=== PATIENT | male | born 1960 | race Caucasian/White ===

== ENCOUNTER 2019-05-10 11:07 | Day surgery (SDC) | payer MEDICARE, MEDICAID, SELFPAY ==
--- NOTE | 2019-04-13 01:56 | HP_ITS ---
Intake Vital Signs 04/13/19 Body Mass Index (BMI) 24.3 04/13/19 Height 5 ft 6 in 04/13/19 Weight: 194 lb 04/13/19 Body Mass Index (BMI) 31.3 04/13/19 Blood Pressure 193/97 H 04/13/19 Blood Pressure Location Rt brachial 04/13/19 Respiratory Rate 16 04/13/19 Pulse Rate 79 04/13/19 Pulse Source Monitor 04/13/19 Temperature 97.9 F 04/13/19 Pulse Ox 100 04/13/19 Oxygen Delivery Method room air Intake Visit Reasons: Multiple Skin Lesions, Ear/Eye Mainspring W[employer]iler Required: No Is patient in pain?: No Allergies benzyl alcohol Allergy (Verified 04/13/19 13:33) Rash Medications Amlodipine [Norvasc] 5 mg PO DAILY 01/04/14 [History Confirmed 04/13/19] Atenolol [Tenormin (Beta Nicole)] 50 mg PO DAILY 01/04/14 [History Confirmed 04/13/19] Carbamazepine [Tegretol] 100 mg PO DAILY 01/04/14 [History Confirmed 04/13/19] Carbamazepine [Tegretol] 200 mg PO BIDCM 01/04/14 [History Confirmed 04/13/19] Famotidine [Pepcid] 20 mg PO DAILY 01/04/14 [History Confirmed 04/13/19] Senna [Senokot] 1 tab PO BID 01/04/14 [History Confirmed 04/13/19] Simvastatin [Zocor] 20 mg PO DAILY 01/04/14 [History Confirmed 04/13/19] Venlafaxine HCl 75 mg PO DAILY 01/04/14 [History Confirmed 04/13/19] Venlafaxine HCl [Effexor Xr] 150 mg PO QHS 01/04/14 [History Confirmed 04/13/19] cholecalciferol (vitamin D3) 1,000 unit capsule 1,000 unit PO DAILY 04/13/19 [History Confirmed 04/13/19] loratadine 10 mg tablet 10 mg PO DAILY 04/13/19 [History Confirmed 04/13/19] tamsulosin 0.4 mg capsule 0.4 mg PO DAILY 04/13/19 [History Confirmed 04/13/19] [facility] Medical History (Updated 04/13/19 @ 13:52 by Philip Conroy MD) Controlled depression (Acute) GERD without esophagitis (Acute) Cerebral palsy (Acute) Profound intellectual disabilities (Acute) Periorbital cellulitis (Acute) Epilepsy (Acute) Benign prostatic hyperplasia without lower urinary tract symptoms (Acute) Allergic rhinitis, mild (Acute) 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 (Acute) Impulse control disorder (Acute) Hypertension (Chronic) Surgical History (Updated 04/13/19 @ 13:31 by Genesis Gr) History of ankle surgery (Acute) Family History (Updated 04/13/19 @ 13:32 by Genesis Gr) Brother Arthritis Heart disease Hypertension Sister Seizures Heart disease Hypertension Arthritis Mother Arthritis Heart disease Seizures Social History (Updated 04/13/19 @ 13:56 by Philip Conroy MD) Smoking Status: Never smoker second hand exposure: No alcohol intake: never substance use type: does not use caffeine: Yes what type of physical activity do you participate in: none frequency: does not exercise HPI HPI HPI: JOSHUA DONALDSON, is a 59 M who presents to the office today for HPI HPI Surgical H&P: Yes HPI: JOSHUA DONALDSON, is a 59 M who presents to the office today for surgical consultation regarding multiple skin lesions. The patient is referred by his primary care physician Dr. Hermilo Clarke in written compromise surgical consult recommendations will be returned to him The patient has irritated bilateral infraorbital skin tags on his lower eyelids. A very dominant one on the left and slightly less prominent one on the right. He has a very tender lesion on the left superior ear pinna measuring 8 mm in size. He has a partially pedunculated irritated lesion left upper back. Problems include seizure disorder and impulse control disorder. It is not felt that he can have these items treated conservatively in an office setting and he was referred for surgery to perform procedure of removal in an operating room setting. The patient has had operative intervention in the past most recently for fractured ankle and by report he does well. Although he is on seizure medication he has not had a seizure for an extended period of time ROS General General: No weight change, appetite, fatigue, colon cancer, breast cancer or weakness HEENT HEENT: No difficulty swallowing, eye injury, eye surgery, swollen glands or hoarseness Endo Endocrine: No thyroid disease, diabetes mellitus, thyroid cancer, Hair loss, heat intolerance or cold intolerance Skin Skin: No rash or changing moles Breast Breast: No left breast lump, right breast lump, nipple discharge, breast pain, abnormal mammogram, abnormal US or breast enlargement Cardio Cardiovascular: Yes high blood pressure; no murmur, pacemaker, heart disease, atrial fibrillation, heart attack, heart stent, palpitations, shortness of breat with exertion or chest pain Resp Respiratory: No shortness of breath, No sleep apnea, No cough, No COPD, No asthma, No emphysema, No wheezing Gastro Gastrointestinal: No abdominal pain, No nausea or vomiting, No diarrhea, No constipation, No blood in stool, No acid reflux, No hemorrhoids, No ulcers, No gallbladder problem, No black,tarry stools Juan Luis Hematologic: No blood thinners, No blood disorders, No bleeding, No anemia, No blood clots Neuro Neurologic: No system reviewed and no additional complaints, except as docu, No as per HPI, No abnormal walking, No abnormal hearing, No abnormal movements, No abnormal speech, No behavioral changes, No burning sensations, No confusion, No seizure-like activity, No unsteadiness, No dizziness, No localized weakness, No frequent falls, No headache(s), No lack of coordination, No loss of vision, No memory loss, No numbness, No other visual disturbances, No radiating pain, No restless legs, No sensory deficit, No fainting, No tingling, No tremor(s), No weakness, No other Exam Const Nutritional Appearance: overweight Orientation: awake [facility] Other: Left lower eyelid pedunculated elongated 4 mm skin tag right lower eyelid 2 mm skin tag Left apical ear pinna slightly exophytic flesh-colored 8 mm diameter lesion tender to palpation Chest Breast Palpation: No nipple discharge Other: Left upper back keratotic pedunculated 1 cm lesion Resp Effort & Inspection: normal respiratory effort Auscultation: clear to auscultation bilaterally Cardio Rate: regular rate Rhythm: regular rhythm Heart Sounds: no murmurs GI Other: Overweight Assessment & Plan Problems 1. Skin lesion L98.9 Plan The periorbital skin tags can be associated with basal cancer. I recommend amputation with pathology. The left apical ear pinna lesion could be chondrodermatitis nodularis helicis. Left upper back lesion appears to be a pedunculated fibroepithelial polyp. I plan cautery ablation of the periorbital lesions in the left upper back lesion. I plan suturing elliptical excision of the left ear pinna lesion with primary closure. He is provided with assistance from his care providers. We will schedule and proceed at their discretion. I believe that I can pursue this under monitored anesthesia care local anesthetic. CC: Dr. Hermilo Conroy M.D., F.A.C.S. Coding Level of Care Code 24467 Diagnoses Skin lesion L98.9 04/13/19 1356 <Electronically signed by Philip brito MD> Date _ Philip Conroy MD I have re-examined the patient. There are no clinical changes since date of exam.
[2019-04-13 13:40] VITALS: BMI 24.3
[2019-05-10] VITALS (7 sets, daily range): BP systolic 111–131; BP diastolic 75–95; PULSE 69–75; RESP 16–18; TEMP 36.2; O2SAT 99–100; BMI 35.5
--- NOTE | 2019-05-10 | LES_PTH ---
PATIENT: JOSHUA CRUZ LOC: [facility] – [place] U#:[id number] AGE/SX: 59/M ROOM: RE05/10/[address]: Dr. Philip Conroy MD : [id number] BED: DIS: 05/10/2019 SPEC #: [id number] RECD: 05/10/19 14:32 STATUS: CHIDI VANDANA #: [id number] ROSEMARY: 05/10/19 00:[address]: Philip Conroy DEPT: SURGICAL PATHOLOGY RECD BY: Marcelo Argueta ENTERED: 05/11/19 08:56 SP TYPE: Lesion OTHR DR: Dr. Hermilo Clarke MD Tissues: A - Skin of external ear, NOS B - Skin of head, NOS C - Skin of external ear, NOS D - Skin of back, NOS Procedures: Surgery Specimen Level IV HEADER OPERATION: Ablation/excision bilateral lower eyelid skin lesions PRE-OP DIAGNOSIS: Skin lesions, bilateral lower eyelids; bilateral ear helix; left upper back TISSUE SUBMITTED: A - Left ear lesion, B - Left and right periorbital skin lesions, C - right anterior ear helix, D - Back lesion, left MICROSCOPIC DIAGNOSIS A. Left ear lesion, biopsy: A piece of skin with focal acanthosis and hyperkeratosis. Negative for malignancy. B. Left and right periorbital skin lesions, biopsy: Fragments of squamous papilloma. C. Right anterior hallux lesion, biopsy: Consistent with verruca vulgaris. D. Back lesion, left, biopsy: Squamous papilloma. SJ:mauro 05/14/19 MICROSCOPIC DESCRIPTION Slides are reviewed. GROSS DESCRIPTION A - Received in fixative is one container labeled with the patient's name and designated left ear lesion. The specimen consists of a piece of gunter-white skin measuring 1.5 x 0.5 x 0.1 cm. The specimen is inked and submitted entirely in one cassette. It will be sectioned at the time of embedding. B - Received in fixative is one container labeled with the patient's name and designated right and left periorbital skin tags. The specimen consists of three pieces of gunter-white skin. The two smaller pieces each measure 0.1 cm in greatest dimension and the largest piece measures 1 x 0.3 x 0.2 cm. The entire specimen is submitted in one cassette. C - Received in fixative is one container labeled with the patient's name and designated right anterior ear helix. The specimen consists of a piece of gunter-white skin measuring 0.2 x 0.2 x 0.1 cm. The specimen is totally submitted in one cassette. D - Received in fixative is one container labeled with the patient's name and designated back lesion, left. The specimen consists of a piece of gunter-white skin measuring0.8 x 0.6 x 0.4 cm. The specimen is inked, bisected and submitted entirely in one cassette. / SJ:rg 05/11/19 TC:1 CPT: 90414 x4
[2019-05-10] MEDS: Lactated Ringers 1,000 ML 100 ML IV (12:11)
[2019-05-10] MEDS: Bupivacaine Mpf 0.5% 30 ML VIAL (13:34)
--- NOTE | 2019-05-10 13:58 | OP.PCM_ITS ---
Problem List (1) Skin lesion Status: Acute Report of Operation Date of Procedure: 05/10/19 Pre-Operative Diagnosis: Skin tags right infraorbital x2. Skin tags left upper eyelid x2 and lower eyelid x1. Right preauricular 3 mm keratotic lesion. Left apical ear helix flat 3 x 5 mm lesion. Mid upper back exophytic fibroepithelial polyp Post-Operative Diagnosis: Pathology pending Surgery/Procedure Performed:: Amputation ablation right periorbital lesions and left periorbital lesions and right anterior helix lesion and mid upper back lesion. Left apical ear helix elliptical excision with primary closure, 1.2 cm length Description of Surgical Findings:: Timeout informed consent was obtained 59-year-old gentleman was taken the operating room and underwent monitored anesthesia care. 1% lidocaine mixed 50- 50 with 0.5% Marcaine was used as local anesthetic. Throughout the procedure a total of 8 cc was used. The face and bilateral ears were prepped and draped with Betadine. Local was instilled. The bilateral periorbital lesions were treated with local and then sharp excision with Accu-Temp cautery of the bases. The right anterior ear helix helix lesion was treated the same. The upper mid back lesion was treated with local and then amputation and Bovie cauterization. The left superior ear helix lesion was treated with local. A 1.2 x 0.5 cm ellipse was completely used to excise the lesion. Subcutaneous flaps were raised. The skin edges were primary approximated with simple sutures of 6-0 nylon. Telfa and tape dressing applied. Specimens were submitted in formalin for analysis Each of the areas were treated with topical antibiotic ointment wire to dressings. The upper back dressing had a Telfa OpSite dressing. The left ear dressing Telfa and tape. The other lesions were not amenable to dressings and was simply treated with topical antibiotic ointment. Office follow-up is anticipated in 8 days. Philip Conroy M.D., F.A.C.S. Type of Anesthesia:: Local MAC Anesthesiologist: Elli Mejia
[2019-05-10] MEDS: Mupirocin Ointment 22gm Tube 1 APPLIC (14:00)
--- NOTE | 2019-05-10 14:03 | DCINST_ITS ---
Discharge Diet: Light diet - advance as tolerated - if you have questions about your diet instructions, please talk to you doctor. Discharge Activity: May Not Drive - for 1 week or while taking narcotic pain medicine. May shower in (days): 2 Lifting Restrictions: 10 pounds Additional Activity Instructions:: Tylenol 500 mg may be given every 4-6 hours as needed for discomfort not to exceed 2000 mg daily. I would anticipate no greater than 3 days requirement at most. Call your doctor if your incision/area has: Continuous Slow Oozing, Sudden Increased Bleeding, Increased Pain/ Swelling, Increased Redness, Foul Smelling Discharge Call your doctor if you observe: Fever of 101 or Higher Suture Line Care: Avoid Pulling/Pushing, Avoid Pinching/Bending Additional Dressing/Incision Instructions:: The left ear lesion can be carefully changed daily treated with a Q-tip and hydrogen peroxide to clean any crusting and have topical antibiotic ointment applied prior to nonstick dressing with tape. The bigg-orbital skin sites can either be left alone or treated with a very small amount of topical antibiotic ointment taking care not to spread and to the ointment to the eyes. The right preauricular ear lesion can be treated with topical antibiotic ointment and can either be left open or covered with a small spot Band-Aid. The upper back lesion can be treated with topical antibiotic ointment and a small spot Band-Aid starting in 2 days when the Telfa OpSite dressing is removed Allergies/Adverse Reactions: Allergies benzyl alcohol Allergy (Verified 05/03/19 12:09) Rash Medications to take at Discharge Amlodipine [Norvasc] 5 mg PO DAILY 01/04/14 Atenolol [Tenormin (beta te)] 50 mg PO DAILY 01/04/14 Carbamazepine [Tegretol] 100 mg PO DAILY 01/04/14 Carbamazepine [Tegretol] 200 mg PO BIDCM 01/04/14 Famotidine [Pepcid] 20 mg PO DAILY 01/04/14 Senna [Senokot] 1 tab PO BID 01/04/14 Simvastatin [Zocor] 20 mg PO DAILY 01/04/14 Venlafaxine HCl 75 mg PO DAILY 01/04/14 Venlafaxine HCl [Effexor Xr] 150 mg PO QHS 01/04/14 cholecalciferol (vitamin D3) 1,000 unit capsule 1,000 unit PO DAILY 04/13/19 loratadine 10 mg tablet 10 mg PO DAILY 04/13/19 tamsulosin 0.4 mg capsule 0.4 mg PO DAILY 04/13/19 Acetaminophen [Tylenol Extra Strength] 500 mg PO Q4H PRN PRN #10 tab 05/10/19 Bacitracin/Polymyxin B Ointmen [Polysporin Ointment] 1 applic OPERA.SITE BID #1 tube 05/10/19 The following prescriptions were given: Bacitracin/Polymyxin B Ointmen [Polysporin Ointment] 1 applic OPERA.SITE BID #1 tube Transmission Status: Received by [facility] Acetaminophen [Tylenol Extra Strength] 500 mg PO Q4H PRN PRN #10 tab PRN Reason: Pain Or Fever Transmission Status: Received by [facility] Primary Care Physician: Hermilo Clarke [Primary Care Provider] - Test Results: Test results from this visit will be discussed in further detail at your follow- up appointment, if applicable. Please Follow Up With: Philip Conroy MD - [phone], nursing appointment for suture removal When: Call to make an appointment to be seen in about 8 days.
== END 2019-05-10 15:17 | disposition home or self-care (01) ==
LOC: SDC 11:10 → AC 11:11
PROVIDERS: Family Provider Family Medicine; PCP Family Medicine; Referring Provider Surgery; Visit Provider Surgery
PROC: (CPT 11200; principal; 2019-05-10 12:45)
DX: D23.39 Other benign neoplasm of skin of other parts of face (principal); D23.5 Other benign neoplasm of skin of trunk; L91.8 Other hypertrophic disorders of the skin; Q82.8 Other specified congenital malformations of skin; L03.213 Periorbital cellulitis; R52 Pain, unspecified; I10 Essential (primary) hypertension; E78.00 Pure hypercholesterolemia, unspecified; G80.9 Cerebral palsy, unspecified; F72 Severe intellectual disabilities; G40.909 Epilepsy, unspecified, not intractable, without status epilepticus; F63.9 Impulse disorder, unspecified; N40.0 Benign prostatic hyperplasia without lower urinary tract symptoms; K21.9 Gastro-esophageal reflux disease without esophagitis; Z79.899 Other long term (current) drug therapy
CPT/HCPCS: 00300; 11200; 11401; 11441; 88305; J7120; A4216; J2405

== ENCOUNTER 2022-01-04 13:30 | Outpatient (RCR) | payer MEDICARE, MEDICAID, SELFPAY ==
--- NOTE | 2021-07-01 09:55 | HP.SP.AD ---
History - History Date of Eval: 06/25/21 Medical Diagnosis (from RX): Cerebral Palsy (G80.9) Other Relevant Medical History/Diagnoses/Surgery: Pt arriving to [facility] for speech therapy evaluation w/new speech-generating device. Pt's sister, Ina served as historian for session w/supplemental information provided from Merari Alvarado from [employer] who assists in providing / care for Pt. Pt lives in his own home w/ a roommate. Ina reported Pt had a medium-tech communication device many years ago that Pt rarely used d/t limited options and adapted to using gestures for communication. Recently, Elfego's transition social worker recommended trying for a new device. Pt then participated in skilled evaluation at the [facility] on January 28, 2021, w/Ely Fang. Evaluation recommended Pt would benefit from ProSlate 13 from [email or web address]. Following a wait period for the device Pt and family received training from [employer] AAC admissions representative on Apr.28 on how to add/remove buttons. Family expressing frustration w/complexity of button layers as it appears too challenging for Elfego at this time and they do not want him to get frustrated with the new device. Smoking Status: Never smoker Hx Smoking: No - Pain Is pain an issue with your current prescribed condition?: No - Personal Visual Assistive Devices: None Patients Living Arrangements: w/Roommate w/24 hour care from [employer]. Patient Allergies - Allergies Allergies benzyl alcohol Allergy (Verified 05/03/19 12:09) Rash Other Impressions - Comments Additional -: Plan of care for Pt will include instruction on how to utilize his new speech-generating device in hopes of decreasing frustration and improving communication w/his family, caretakers, and roommate. Family (sisterIna) and care staff (Merari Alvarado of [employer].) to bring device manual and speech therapy AAC evaluation report from [facility] for ART INSTALLER to review prior to scheduling additional visits. This ART INSTALLER will work to simplify device and bookmark howell set up sections in the manual and provide instruction to Pt, family, and health care attorney. Plan - Plan Plan: Will recommend Pt for weekly outpatient speech therapy to address communication w/speech-generating device. Pt would benefit from direction instruction on how to use the speech device for Pt, Pt?s family, and staff attending to Pt. Without skilled ST services, the Pt is at risk for difficulty communicating basic, medical, emergent, social wants & needs, and interacting with family/friends at home, during social interactions, and at work. - Recommendations Treatment Warranted: Yes - Frequency Frequency: 2x /Week Duration: 4 Weeks - Prognosis Prognosis: Good - Goals that are Established: Determination:: Goals will be added/modified as deemed necessary and appropriate. Therapy will be discontinued when results of re-evaluation indicate therapy is no longer needed or lack of progress has been documented. - Goal #1-5 Goal #1: Elfego will navigate to the appropriate category/group (e.g., things, food) within his AAC system, when participating in a categorization task, w/70% acc independently across 3 consecutively measured opportunities. Goal #2: Elfego will use carrier phrases (e.g., ?I want [item/activity]? or ?Can I have [item/activity]??), when making requests for preferred items/activities during a structured task, w/ 80% acc independently across 3 consecutively measured opportunities. Goal #3: Elfego will link subject, verb, and nominal to create a simple sentence relating to a familiar topic, within a structured activity, with 70% acc independently across 3 consecutively measured opportunities. Education - Patient has Indicated that the Following Identified Educational Needs: Cognitively Impaired, Hearing/Vision/Speech Impaired - Patient Instruction Patient Education: Diagnosis, Treatment Plan, Goals Person Taught: Patient, Family, Primary Caregiver Teaching Method: Discussion Response to teaching: Return demonstration, Verbalize understanding
--- NOTE | 2021-09-10 08:53 | HP.SP.ADRE_ITS ---
Previous/Current Goals - Goals 1-5 Previous Goal #1: Elfego will navigate to the appropriate category/group (e.g., things, food) within his AAC system, when participating in a categorization task, w/70% acc independently across 3 consecutively measured opportunities. Goal 1 Status: PROGRESSING: Pt navigates to target food/drink items with 10-40% acc independently and benefits from MIN visual and tactile cues to improve overall acc to 100%. Pt requests stickers with 60% acc independently. Pt tasked with adding descriptor for which color of sticker he wanted, which he completed with 70% acc independently give the phrase which color do you want? Previous Goal #2: Elfego will use carrier phrases (e.g., ?I want [item/activity]? or ?Can I have [item/activity]??), when making requests for preferred items/activities during a structured task, w/ 80% acc independently across 3 consecutively measured opportunities. Goal 2 Status: PROGRESSING: Elfego independently uses I feel hungry with 60% acc, I feel thirsty with 75% acc, and I want Laith-Aid with 100% acc. Pt benefits from MIN verbal and tactile (WRANGELL) cues to improve overall acc to 100%. Previous Goal #3: Elfego will link subject, verb, and nominal to create a simple sentence relating to a familiar topic, within a structured activity, with 70% acc independently across 3 consecutively measured opportunities. Goal 3 Status: NOT ADDRESSED: This goal was created based on the results of the speech therapy AAC evaluation report provided through [facility]. Following further observation of skills during sessions, this goal is not currently within the Pt's zone of proximal development. Navigating to buttons and communicating with intent is more appropriate for Pt at this time. History - History Date of Eval: 06/25/21 Medical Diagnosis (from RX): Cerebral Palsy (G80.9) Other Relevant Medical History/Diagnoses/Surgery: Pt arriving to [facility] for speech therapy evaluation w/new speech-generating device on 06/25/21. Pt's sister, Ina served as historian for session w/supplemental information pr ovided from Merari Alvarado of [employer], who assists in providing / care for Pt. Pt lives in his own home w/ a roommate. Ina reported Pt had a medium- tech communication device many years ago that Pt rarely used d/t limited options and adapted to using gestures for communication. Recently, Elfego's protective services social worker recommended trying for a new device. Pt then participated in skilled evaluation at the [facility] on January 28, 2021, w/Ely Fang. Evaluation recommended Pt would benefit from ProSlate 13 from [employer] A[employer]. Following a wait period for the device Pt and family received training from [employer] A[employer] players club representative on 2020, on how to add/remove buttons. Family expressing frustration w/complexity of button layers as it appears too challenging for Elfego at this time and they do not want him to get frustrated with the new device. Smoking Status: Never smoker Hx Smoking: No Hx Tobacco Use: No - Pain Is pain an issue with your current prescribed condition?: No - Personal Left Hearing Abillity: Hard of Hearing Visual Assistive Devices: None Patients Living Arrangements: w/Roommate w/24 hour care from [employer]. Patient Allergies - Allergies Allergies benzyl alcohol Allergy (Verified 05/03/19 12:09) Rash Other Impressions - Comments Additional -: Plan of care for Pt will include instruction on how to utilize his new speech-generating device in hopes of decreasing frustration and improving communication w/his family, caretakers, and roommate. Family (sister, Ina) and care staff (Merari Alvarado of [employer] to bring device manual and speech therapy AAC evaluation report from [facility] for LEARNING MANAGER to review prior to scheduling additional visits. This LEARNING MANAGER will work to simplify device and bookmark howell set up sections in the manual and provide instruction to Pt, family, and child care attendant school. Plan - Plan Plan: Will continue to recommend Pt for bi-weekly outpatient speech therapy to address communication w/speech-generating device. Pt would benefit from direction instruction on how to use the speech device for Pt, Pt?s family, and staff attending to Pt. Without skilled ST services, the Pt is at risk for difficulty communicating basic, medical, emergent, social wants & needs, and interacting with family/friends at home, during social interactions, and at work. - Recommendations Treatment Warranted: Yes - Frequency Frequency: Every Other Week - Prognosis Prognosis: Good - Goals that are Established: Determination:: Goals will be added/modified as deemed necessary and appropriate. Therapy will be discontinued when results of re-evaluation indicate therapy is no longer needed or lack of progress has been documented. - Goal #1-5 Goal #1: Elfego will navigate to the appropriate category/group (e.g., things, food) within his AAC system, when participating in a categorization task, w/70% acc independently across 3 consecutively measured opportunities. Goal #2: Elfego will use carrier phrases (e.g., ?I want [item/activity]? or ?Can I have [item/activity]??), when making requests for preferred items/activities during a structured task, w/ 80% acc independently across 3 consecutively measured opportunities. Goal #3: .
== END 2022-01-04 19:00 | disposition home or self-care (01) ==
LOC: SP 13:30
PROVIDERS: PCP Family Medicine; Referring Provider Family Medicine; Visit Provider Family Medicine
DX: G80.9 Cerebral palsy, unspecified (principal); R47.89 Other speech disturbances
CPT/HCPCS: 92507; 92607; 92609

== ENCOUNTER 2022-02-01 12:53 | Outpatient (RCR) | payer MEDICARE, MEDICAID, SELFPAY | END 2022-02-01 19:00 | LOC: SP 12:53 | PROVIDERS: PCP Family Medicine; Referring Provider Family Medicine; Visit Provider Family Medicine | DX: G80.9 Cerebral palsy, unspecified (principal); G93.1 Anoxic brain damage, not elsewhere classified; F80.89 Other developmental disorders of speech and language | CPT/HCPCS: 92609 ==

== ENCOUNTER → 2022-03-08 | Outpatient (CLI) | payer MEDICARE, MEDICAID, SELFPAY ==
--- NOTE | 2022-03-08 13:08 | US_ITS ---
STUDY: RENAL ULTRASOUND - COMPLETE REASON FOR EXAM: Male, 61 years old. URINE RETENTION -- please comment on post void volume TECHNIQUE: Ultrasound evaluation of the kidneys was performed with real-time and static june-scale imaging. COMPARISON: None. FINDINGS: RIGHT KIDNEY: Normal location of the right kidney, which is normal in size. The right kidney measures 11.1 cm. There is a normal cortex of the right kidney. The renal cortex measures 1.4 cm. There is no right renal mass or cyst. There are multiple right renal calculi. These measure around 6 mm. There is no right hydronephrosis. DISTAL RIGHT URETER: There is non-visualization of the distal right ureter. There is no demonstrated right ureterovesical junction calculus. There is a visualized right ureteral jet. LEFT KIDNEY: Normal location of the left kidney, which is normal in size. The left kidney measures 11 cm. There is a normal cortex of the left kidney. The renal cortex measures 1.2 cm. There is no left renal mass or cyst. There are multiple left renal calculi. These measure around 6 mm. There is no left hydronephrosis. DISTAL LEFT URETER: There is non-visualization of the distal left ureter. There is no demonstrated left ureterovesical junction calculus. There is a visualized left ureteral jet. AORTA: There is obscuration of the abdominal aorta by overlying bowel gas I.V.C.: The IVC is obscured. BLADDER: The distended urinary bladder has a volume of 161 ml. The empty urinary bladder has a volume of 80ml. There is a diffusely thickened wall of the distended bladder. There is no demonstrated mass within the urinary bladder. There are no demonstrated bladder calculi. US/Kidney and Bladder IMPRESSION: There are bilateral renal calculi. There is no evidence for an obstruction. There is no hydronephrosis. Electronically Signed: Wayne Caro MD at 20:22 EDT ,
== END | disposition home or self-care (01) ==
PROVIDERS: PCP Family Medicine; Referring Provider Urology; Visit Provider Urology
DX: N20.0 Calculus of kidney (principal); R33.9 Retention of urine, unspecified
CPT/HCPCS: 76770